=== PATIENT | female | born 1990 | race African-American/Black ===

== ENCOUNTER 2017-10-25 23:46 | Emergency (ER) | payer SELFPAY ==
[~2017-10-25] VITALS: Ht 170.2 cm; Wt 63.5 kg
--- NOTE | 2017-10-26 00:03 | NUR ---
PATIENT LEFT WITHOUT BEING SEEN BY [facility]
== END 2017-10-26 00:04 | disposition left against medical advice (07) ==
LOC: ER 23:56
DX: Z53.21 Procedure and treatment not carried out due to patient leaving prior to being seen by health care provider (principal)